=== PATIENT | male | born 1995 | race African-American/Black ===

== ENCOUNTER 2021-07-27 22:39 | Emergency (ER) | payer OTHER ==
[~2021-07-27] VITALS: Ht 180.3 cm; Wt 98.6 kg
[2021-07-27] MEDS ORDERED: ACET32TAB PO (22:51)
[2021-07-28] MEDS ORDERED: ONDA4TAB6 PO (06:49)
[2021-07-28 07:13] VITALS: BP 137/62
== END 2021-07-28 07:18 | disposition home or self-care (01) ==
LOC: M ED 22:39
DX: U07.1 COVID-19 (principal); Z88.0 Allergy status to penicillin